=== PATIENT | male | born 1950 | race Caucasian/White ===

== ENCOUNTER 2023-10-29 11:28 | Day surgery (SDC) | payer OTHER ==
[~2023-10-29] VITALS: Ht 188 cm; Wt 82.1 kg
[2023-10-29] MEDS ORDERED: fentaNYL CITRATE/PF 100 MCG/2 ML AMP ONE (14:24)
[2023-10-29] MEDS ORDERED: ONDANSETRON HCL 4 MG/2 ML VIAL ONE (14:24)
[2023-10-29] MEDS ORDERED: BUPIVACAINE /PF 0.25% 30 ML VIAL INJ ONE (14:24)
[2023-10-29] MEDS ORDERED: MIDAZOLAM HCL 2 MG/2 ML VIAL (VERSED) ONE (14:24)
[2023-10-29] MEDS ORDERED: LR 1,000 ML IV.SOLN IV ONE (14:24)
[2023-10-29] MEDS ORDERED: LIDOCAINE 1% 10 MG/ML, 20 ML MDV ONE (14:24)
[2023-10-29] MEDS ORDERED: NS IRRIG SOLN 1000 ML IR ONE (14:24)
[2023-10-29] MEDS ORDERED: METOCLOPRAMIDE HCL 10 MG/2 ML VIAL ONE (14:24)
[2023-10-29 14:26] VITALS: O2SAT 100
[2023-10-29] MEDS ORDERED: HYDROmorphone 1 MG/ML INJ. CARTRIDGE IVP PRN (15:30)
[2023-10-29] MEDS ORDERED: LR 1,000 ML IV SCH (15:30)
[2023-10-29] MEDS ORDERED: KETOROLAC TROMETHAMINE 30 MG VIAL IVP PRN (15:30)
[2023-10-29] MEDS ORDERED: ONDANSETRON HCL 4 MG/2 ML VIAL IVP PRN (15:30)
[2023-10-29 17:00] VITALS: BP_SYST 122; PULSE 60; RESP 18
== END 2023-10-29 17:00 | disposition home or self-care (01) ==
LOC: SMU 11:28 → SDS 11:28
PROVIDERS: ATTEND Podiatrist Primary Podiatric Medicine
DX: M86.172 Other acute osteomyelitis, left ankle and foot (principal); E11.621 Type 2 diabetes mellitus with foot ulcer; L89.893 Pressure ulcer of other site, stage 3; E11.52 Type 2 diabetes mellitus with diabetic peripheral angiopathy with gangrene; I96 Gangrene, not elsewhere classified; I10 Essential (primary) hypertension; I25.10 Atherosclerotic heart disease of native coronary artery without angina pectoris; Z87.891 Personal history of nicotine dependence; Z79.899 Other long term (current) drug therapy
CPT/HCPCS: 87081; 28810; 87070 ×2; 87075; 88305; 88311; 82962; J3490; J2001; J2765; J3465; J2405; J3010; J7120